=== PATIENT | female | born 1990 | race Caucasian/White ===

== ENCOUNTER 2017-01-15 12:29 | Emergency (ER) | payer OTHER | END 2017-01-15 13:44 | disposition home or self-care (01) | LOC: ER 12:29 | DX: J06.9 Acute upper respiratory infection, unspecified (principal) | CPT/HCPCS: 87502 ==

== ENCOUNTER 2017-03-01 17:35 | Emergency (ER) | payer OTHER | END 2017-03-01 18:40 | disposition home or self-care (01) | LOC: ER 17:35 | DX: R13.10 Dysphagia, unspecified (principal); F32.9 Major depressive disorder, single episode, unspecified; F41.9 Anxiety disorder, unspecified; Z88.0 Allergy status to penicillin; Z88.1 Allergy status to other antibiotic agents; Z88.5 Allergy status to narcotic agent; Z91.040 Latex allergy status | CPT/HCPCS: 87651 ==

== ENCOUNTER 2017-03-12 21:25 | Emergency (ER) | payer OTHER | END 2017-03-12 22:58 | disposition home or self-care (01) | LOC: ER 21:25 | DX: Z32.02 Encounter for pregnancy test, result negative (principal); Z88.0 Allergy status to penicillin; Z88.1 Allergy status to other antibiotic agents; Z88.5 Allergy status to narcotic agent; Z91.040 Latex allergy status; Z98.51 Tubal ligation status | CPT/HCPCS: 36415 ==